=== PATIENT | male | born 1945 | race Caucasian/White ===

== ENCOUNTER → 2016-06-15 | Outpatient (CLI) | payer OTHER, MEDICARE ==
[~2016-06-15] MED LIST: GADOBUTROL 10 ML VIAL IVP ONE
== END ==
LOC: FIMAGING 18:37
PROVIDERS: ATTEND Psychiatry & Neurology Neurology
DX: E23.7 Disorder of pituitary gland, unspecified (principal); M50.321 Other cervical disc degeneration at C4-C5 level; M47.892 Other spondylosis, cervical region; M48.02 Spinal stenosis, cervical region
CPT/HCPCS: 70553; 72141; A9585

== ENCOUNTER → 2016-07-06 | Outpatient (CLI) | payer OTHER, MEDICARE | LOC: FIMAGING 09:53 | PROVIDERS: ATTEND Physician Assistant Surgical | DX: M51.36 Other intervertebral disc degeneration, lumbar region (principal); M51.26 Other intervertebral disc displacement, lumbar region; Z98.1 Arthrodesis status ==

== ENCOUNTER 2016-08-18 06:31 | Day surgery (SDC) | payer OTHER, MEDICARE ==
[2016-08-18] MEDS ORDERED: FAMOTIDINE 20 MG TAB PO ONE (06:37)
[2016-08-18] MEDS ORDERED: DIAZEPAM 5 MG TAB PO ONE (06:37)
[2016-08-18] MEDS ORDERED: ASPIRIN EC 325 MG TAB PO ONE ×2 (06:37→06:55)
[2016-08-18] MEDS ORDERED: NS 1,000 ML IV ONE (06:37)
[2016-08-18] MEDS ORDERED: diphenhydrAMINE 25 MG CAP PO ONE ×2 (06:37→06:55)
[2016-08-18] MEDS ORDERED: NS 1,000 ML IV SCH (06:45)
[2016-08-18] MEDS ORDERED: DIAZEPAM 5 MG TAB ONE (06:55)
[2016-08-18] MEDS ORDERED: FAMOTIDINE 20 MG TAB ONE (06:55)
[2016-08-18] MEDS ORDERED: SODIUM BICARBONATE 150 MEQ in D5W 1,000 ML IV SCH (07:00)
--- NOTE | 2016-08-18 07:10 | CPEKG ---
Heart Rate: 79 RR Interval: 759 QRSD Interval: 104 QT Interval: 404 QTC Interval: 464 QRS Baldwin: 82 T Wave Baldwin: 8 EKG Severity - ABNORMAL ECG - EKG Impression: ATRIAL FIBRILLATION, V-RATE 57-91 EKG Impression: BORDERLINE RIGHT AXIS DEVIATION EKG Impression: BORDERLINE R WAVE PROGRESSION, ANTERIOR LEADS Electronically Signed By: Alex Camacho 18-Aug-2016 08:02:07
[2016-08-18 07:21] LABS: % IMMATURE GRANULYOCYTES 0.8 % (0.0-1.1); ABSOLUTE IMMATURE GRANULOCYTES 0.06 10^3/uL (0.00-0.10); ADD DIFF? NO; ADD MORPH? NO; ADD SCAN? NO; ATYPICAL LYMPHOCYTE FLAG 20 (0-99); FRAGMENT RBC FLAG 0 (0-99); HEMATOCRIT 37.3 % (40.0-51.0); HEMOGLOBIN 12.4 g/dL (13.7-17.5); LEFT SHIFT FLG 0 (0-99); LIPEMIA HEMOLYSIS FLAG 80 (0-99); MEAN CELL HEMOGLOBIN 28.8 pg (27.9-34.1); MEAN CELL HEMOGLOBIN CONCENTR. 33.2 g/dL (32.4-36.7); MEAN CELL VOLUME 86.5 fL (81.5-99.8); PLATELET CLUMPS FLAG 0 (0-99); PLATELET COUNT 181 10^3/uL (150-400); RED BLOOD CELL COUNT 4.31 10^6/uL (4.40-6.38); RED CELL DISTRIBUTION WIDTH 14.7 % (11.5-15.2)
[2016-08-18 07:32] LABS: INR 1.14 (0.83-1.16); PROTIME(PATIENT) 14.5 SEC (12.0-15.0)
[2016-08-18 07:40] LABS: ANION GAP 14 mEq/L (8-16); CALCIUM 9.2 mg/dL (8.5-10.4); CARBON DIOXIDE 21 mEq/l (22-31); CHLORIDE 109 mEq/L (97-110); CHOLESTEROL 183 mg/dL (140-220); CHOLESTEROL/HDL RATIO 5.72 RATIO (1.00-4.97); CREATININE 1.5 mg/dL (0.7-1.3); GLOMERULAR FILTRATION RATE 46; GLUCOSE 172 mg/dL (70-100); HIGH DENSITY LIPOPROTEIN 32 mg/dL (40-65); LDL/HDL RATIO 3.69 RATIO (1.00-3.64); LOW DENSITY LIPOPROTEIN 118 mg/dL (80-100); MAGNESIUM 1.3 mg/dL (1.6-2.3); NON-HIGH DENSITY LIPOPROTEIN 151 mg/dL (90-129); POTASSIUM 4.2 mEq/L (3.5-5.2); SODIUM 144 mEq/L (134-144); TRIGLYCERIDE 165 mg/dL (40-150); VERY LOW DENSITY LIPOPROTEINS 33 mg/dL (8-25)
[2016-08-18] MEDS ORDERED: LIDOCAINE 1% 30 ML SDV ONE (09:14)
[2016-08-18] MEDS ORDERED: MIDAZOLAM 2 MG/2 ML VIAL ONE (09:15)
[2016-08-18] MEDS ORDERED: HEPARIN 10,000 UNIT/10 ML MDV ONE (09:15)
[2016-08-18] MEDS ORDERED: VERAPAMIL 5 MG/2 ML VIAL ONE (09:15)
[2016-08-18] MEDS ORDERED: fentaNYL 100 MCG/2 ML INJ ONE (09:15)
[2016-08-18] MEDS ORDERED: IOPAMIDOL (ISOVUE-370) 150 ML BTL IV ONE (09:16)
[2016-08-18] MEDS ORDERED: ONDANSETRON 4 MG/2 ML VIAL IVP PRN (12:18)
[2016-08-18] MEDS ORDERED: NITROGLYCERIN 0.4 MG BTL SL PRN (12:18)
[2016-08-18] MEDS ORDERED: ATROPINE SULFATE 1 MG/10 ML SYR IVP PRN (12:18)
--- NOTE | 2016-08-18 12:24 | PDDXCAT ---
Diagnostic Cath Note - . Date: 08/18/16 [employer] Clerk: Jose Indication: High-risk criteria on noninvasive testing (choose option below) High-risk criteria on non-invasive testing: large, fixed perfusion defect w LV dilatation or increased lung uptake - Procedure Access: left wrist Procedure: left heart catheterization, coronary angiography, other (Measurement of LVEDP) - Materials Left Heart Cath size: 5F Left Heart Cath materials: JL3.5, JR4.0, pigtail - Findings-Left Heart Catheterization LM: Unobstructed LAD: LAD stents widely patent. Principal diagonal 50% ostial disease LCX: Luminal irregularities not greater than 10%. RCA: Stents widely patent. Diffuse distal disease of 40-50% EDP: 15 mm of mercury Complications: None Estimated blood loss: <50ml Closure method: TR Band Assessment: 1. No contraindications to neuro surgical procedure identified by this study. 2. Widely patent site of prior stents including the LAD and right coronary artery. 3. Normal left ventricular end-diastolic pressure. 4. Renal insufficiency with creatinine 1.5. Dye limited to limited coronary angiography. IV normal saline post procedure. Plan: Repeat SMA 7 1 week. Referral back to [facility] for perioperative management. Patient Problems: Problems Problem Status Onset Drug-induced hypotension Active Hyperglycemia Active Afib - Atrial fibrillation Active Obstructive sleep apnea syndrome Active Leukocytosis Active Shoulder joint pain Active Anticoagulated Acute GI bleed Acute Acute renal failure Acute Weakness Acute Abnormal exercise myocardial perfusion study Acute Pre-operative cardiovascular examination, high risk surgery Acute Status post insertion of drug-eluting stent into left anterior descending (LAD) artery Acute Status post placement of stent in right coronary artery Acute - ICD10 Problem Qualifiers (1) Abnormal exercise myocardial perfusion study (2) Status post insertion of drug-eluting stent into left anterior descending ( LAD) artery (3) Status post placement of stent in right coronary artery (4) Pre-operative cardiovascular examination, high risk surgery
== END 2016-08-18 16:00 | disposition home or self-care (01) ==
LOC: FCATH 06:31
PROVIDERS: ATTEND Internal Medicine Interventional Cardiology
PROC: B2151ZZ Fluoroscopy of Left Heart using Low Osmolar Contrast (ICD-10-PCS; principal; 2016-08-18)
PROC: 4A023N7 Measurement of Cardiac Sampling and Pressure, Left Heart, Percutaneous Approach (ICD-10-PCS; principal; 2016-08-18)
PROC: B2111ZZ Fluoroscopy of Multiple Coronary Arteries using Low Osmolar Contrast (ICD-10-PCS; principal; 2016-08-18)
DX: R06.02 Shortness of breath (principal); R94.39 Abnormal result of other cardiovascular function study; I25.10 Atherosclerotic heart disease of native coronary artery without angina pectoris; N28.9 Disorder of kidney and ureter, unspecified; Z95.5 Presence of coronary angioplasty implant and graft
CPT/HCPCS: 93005; 93458; C1769; J1200; J1644; J2250; J3010; Q9967

== ENCOUNTER 2016-08-25 05:32 | Inpatient (IN) | payer OTHER, MEDICARE ==
[2016-08-25] MEDS ORDERED: LIDOCAINE 1% 2 ML INJ ONE (05:52)
[2016-08-25] MEDS ORDERED: DEXAMETHASONE 10 MG/ML VIAL IVP ONE (06:00)
[2016-08-25] MEDS ORDERED: CHLORHEXIDINE GLUC HIBICLENS 118 ML BTL TP ONE (06:00)
[2016-08-25] MEDS ORDERED: BUPIVACAINE/EPI 0.5% 30 ML SDV ONE ×2 (06:44→06:48)
[2016-08-25] MEDS ORDERED: BACITRACIN 50,000 UNITS/10 ML SYR IRR ONE (06:44)
[2016-08-25] MEDS ORDERED: THROMBIN (BOVINE) 5,000 UNIT VIAL TP ONE ×3 (06:44→09:38)
[2016-08-25] MEDS ORDERED: BUPIVACAINE 0.25% 30 ML SDV ONE (06:49)
[2016-08-25] MEDS ORDERED: CEFAZOLIN 2 GM/DEXTROSE/100 ML BAG IV ONE (06:57)
[2016-08-25] MEDS ORDERED: ceFAZolin 2 GM/DEXTROSE 100 ML IV ONE (07:00)
[2016-08-25] MEDS ORDERED: CITRATE DEXTROSE SOLN 500 ML BAG ONE (07:03)
[2016-08-25] MEDS ORDERED: MIDAZOLAM 2 MG/2 ML VIAL ONE (07:10)
[2016-08-25] MEDS ORDERED: PROPOFOL/EMULSION 500 MG/50 ML BOTTLE IV ONE ×6 (07:14→12:33)
[2016-08-25] MEDS ORDERED: LIDOCAINE 2% 100 MG/5 ML SYR ONE (07:15)
[2016-08-25] MEDS ORDERED: ROCURONIUM 50 MG/5 ML VIAL ONE (07:15)
[2016-08-25] MEDS ORDERED: METOCLOPRAMIDE 10 MG/2 ML VIAL ONE (07:15)
[2016-08-25] MEDS ORDERED: SUCCINYLCHOLINE CHLORIDE*ANESTHESIA ONLY*200 MG/10 ML SYR IVP ONE (07:15)
[2016-08-25] MEDS ORDERED: BUPIVACAINE/EPI 0.25% 30 ML SDV ONE ×2 (07:37→11:54)
[2016-08-25] MEDS ORDERED: SURGIFLO MATRIX KIT WITH THROMBIN TP ONE (10:02)
[2016-08-25] MEDS ORDERED: ceFAZolin 1 GM VIAL ONE (10:33)
[2016-08-25] MEDS ORDERED: SUGAMMADEX SODIUM 200 MG/2 ML VIAL IVP ONE (11:36)
[2016-08-25] MEDS ORDERED: morphINE *ANESTHESIA ONLY* 10 MG/ML VIAL ONE (13:52)
[2016-08-25] MEDS ORDERED: DIAZEPAM 10 MG/2 ML SYR IVP PRN (14:27)
[2016-08-25] MEDS ORDERED: LACTULOSE 20 GM/30 ML UDCUP PO PRN (14:27)
[2016-08-25] MEDS ORDERED: ACETAMINOPHEN 325 MG TAB PO PRN (14:27)
[2016-08-25] MEDS ORDERED: oxyCODONE IR 5 MG TAB PO PRN (14:27)
[2016-08-25] MEDS ORDERED: DIAZEPAM 5 MG TAB PO PRN (14:27)
[2016-08-25] MEDS ORDERED: NALOXONE HCL 0.4 MG/ML INJ IVP PRN (14:27)
[2016-08-25] MEDS ORDERED: HYDROmorphONE/DILAUDID 6 MG/30 ML PCA IV PRN (14:27)
[2016-08-25] MEDS ORDERED: diphenhydrAMINE 25 MG CAP PO PRN (14:27)
[2016-08-25] MEDS ORDERED: BISACODYL 10 MG SUPP PR PRN (14:27)
[2016-08-25] MEDS ORDERED: ONDANSETRON 4 MG/2 ML VIAL IVP PRN (14:27)
[2016-08-25] MEDS ORDERED: MAGNESIUM HYDROXIDE 30 ML UDCUP PO PRN (14:27)
[2016-08-25] MEDS ORDERED: ONDANSETRON DISINTEGRATING 4 MG TAB PO PRN (14:27)
[2016-08-25] MEDS ORDERED: NS W/ 20 KCl/L 1,000 ML IV SCH (14:30)
--- NOTE | 2016-08-25 14:32 | SOAPPROG ---
VIC Progress Note Assessment/Plan: Assessment: 71 yo M sp C3-7 ACDF and C3-T1 fusion with C3-6 laminectomy Plan: stable soft collar SHEBA x 2 please call with neuro changes 08/25/16 14:31 Subjective: + neck pain, no arm pain. Objective: somnolent PERRL, no facial droop [place] x 4 + light touch ICD10 Worksheet Patient Problems: Problems Problem Status Onset Afib - Atrial fibrillation Active Drug-induced hypotension Active Hyperglycemia Active Leukocytosis Active Obstructive sleep apnea syndrome Active Shoulder joint pain Active Abnormal exercise myocardial perfusion study Acute Acute renal failure Acute Anticoagulated Acute GI bleed Acute Pre-operative cardiovascular examination, high risk surgery Acute Status post insertion of drug-eluting stent into left anterior descending (LAD) artery Acute Status post placement of stent in right coronary artery Acute Weakness Acute
[2016-08-25] MEDS ORDERED: DIAZEPAM 10 MG/2 ML SYR ONE (15:13)
--- NOTE | 2016-08-25 15:20 | GOP ---
[f rep st] OPERATIVE REPORT DATE OF OPERATION: 08/25/2016 SURGEON: Rafat Beauchamp MD PARAMEDICAL AIDE: PAYTON Junior ANESTHESIA: General endotracheal. 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 Progressive myelopathic symptoms. Loss of normal cervical lordosis/sagittal alignment. High-risk surgical candidate given age, comorbidities, and required surgical intervention. 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 Progressive myelopathic symptoms. Loss of normal cervical lordosis/sagittal alignment. High-risk surgical candidate given age, comorbidities, and required surgical intervention. PROCEDURE PERFORMED: C3-4, C4-5, C5-6, and C6-7 complete anterior cervical diskectomy and arthrodesis with 4 structural PEEK interbody spacers, local autograft and demineralized bone matrix. Partial C4, C5 and C6 vertebral corpectomies for decompression of spinal cord. Placement of a C3 through C7 CastleLoc P, L and K anterior cervical plate with self-drilling screws. Use of intraoperative microscopy and fluoroscopy. FINDINGS: ESTIMATED BLOOD LOSS: 250 cc. INDICATIONS: The patient is a 71-year-old diabetic who is obese and has progressive myelopathic symptoms with multilevel cervical degenerative disk disease and disk herniations with significant ligamentum flavum hypertrophy causing severe cervical stenosis and spinal cord compression. He also has a significant loss of the normal lordotic curvature (sagittal alignment). He presents now for a multilevel surgical decompression and stabilization and reconstruction of the normal lordotic curvature of the cervical spine. DESCRIPTION OF PROCEDURE: After informed consent was obtained, the patient was taken to the operating room and placed in the supine position. The anterior cervical region was prepped and draped in a sterile fashion. After fluoroscopic localization of correct levels, the subcutaneous and intramuscular tissues were infiltrated with local anesthesia. A horizontal linear incision was then created at the level of the C5 vertebral body. This was carried through the platysmal layers using monopolar electrocautery and carried in the avascular plane between the sternocleidomastoid and carotid sheath laterally and the strap muscles, trachea , and esophagus medially down to the prevertebral fascia, which was carefully incised with Metzenbaum scissors. The C3-4, C4-5, C5-6, and C6-7 interspaces were identified and re-verified using intraoperative fluoroscopy. The retractor was carefully inserted and the anesthesiologist checked the cuff pressure manometer and lowered the pressure below 10 throughout the surgery. The large osteophytes on the anterior cervical spine were carefully removed and harvested for local autograft. The distraction pins were then serially inserted , first at C3-4, then at C4-5, then at C5-6, then at C6-7, during which time a slight amount of distraction was created across the interspaces and complete diskectomies were performed at each level, one with removal of the posterior longitudinal ligament and bilateral foraminotomies were performed at each of the 4 levels. There were significant irregularities in the vertebral body and posteriorly protruding osteophytes, both of which required an extensive amount of drilling of the endplates and vertebral bodies. This was especially the case for the middle vertebral body levels where both the superior and inferior endplates were drilled out along with the osteophytes and more than 50% of the vertebral bodies were drilled out at C4, C5, and C6 for partial C4, C5, and C6 vertebral corpectomies in order to adequately decompress the spinal cord. Following adequate decompression, meticulous hemostasis was achieved at each of the levels and each interspace was packed with appropriately sized structural PEEK interbody spacer packed with local autograft from the osteophytectomies and drilling, along with demineralized bone matrix. These were placed at C3-4, C4-5, C5-6, and C6-7 under fluoroscopic image guidance. The distraction was serially removed and, following the last interspace, an appropriately-sized CastleLoc P, L and K anterior cervical plate was then placed and secured from C3 through C7 with self-drilling screws. After re-verification of good position of the plate screws and interbody spacers using biplanar and fluoroscopy, the wound was again copiously irrigated and meticulous hemostasis was achieved. Note that so much of the vertebral bodies were drilled away in the middle that several of the levels did not have enough vertebral body left to place screws and these were left out. Following verification of good position of the plate, screws, and interbody spacers, the subcutaneous and soft tissues were re-infiltrated with local anesthesia. The wound was closed in a layered fashion using interrupted Vicryl sutures followed by Steri-Strips on the skin. COMPLICATIONS: None. DISPOSITION: The patient is currently in the process of being repositioned for extubation. /[id number]/MODL MTDD
[2016-08-25] MEDS ORDERED: INSULIN REGULAR HUMAN 100 UNIT/ML ONE ×3 (15:37→15:43)
[2016-08-25 15:52] LABS: GLUCOSE 422 mg/dL (70-100)
[2016-08-25] MEDS ORDERED: INSULIN REGULAR HUMAN 100 UNIT/ML SC ONE ×2 (16:00→16:15)
[2016-08-25] MEDS ORDERED: LABETALOL HCL 50 MG/10 ML SYR ONE (16:04)
[2016-08-25] MEDS ORDERED: LABETALOL HCL 5 MG/ML 20 ML MDV IV ONE (16:15)
--- NOTE | 2016-08-25 16:15 | GOP ---
[f rep st] OPERATIVE REPORT DATE OF OPERATION: 08/25/2016 SURGEON: Rafat Beauchamp MD ASSEMBLY DEPARTMENT SUPERVISOR: PAYTON Junior. ANESTHESIA: General endotracheal. 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 Progressive myelopathic symptoms. Loss of normal cervical lordosis/sagittal alignment. High-risk surgical candidate given age, comorbidities, and required surgical intervention. 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 Progressive myelopathic symptoms. Loss of normal cervical lordosis/sagittal alignment. High-risk surgical candidate given age, comorbidities, and required surgical intervention. PROCEDURE PERFORMED: C3 through T1 posterior segmental (lateral mass screw and pedicle screw) fixation and posterolateral fusion with local autograft. C3 through C7 laminectomies for decompression of spinal canal and spinal cord. Use of intraoperative microscopy, fluoroscopy, and computer volumetric stereotactic navigation with intraoperative neurophysiologic testing. FINDINGS: ESTIMATED BLOOD LOSS: 250 cc. INDICATIONS FOR PROCEDURE: The patient is a 71-year-old diabetic who is obese and has progressive myelopathic symptoms with multilevel cervical degenerative disk disease and disk herniations with significant ligamentum flavum hypertrophy causing severe cervical stenosis and spinal cord compression. He also has a significant loss of the normal lordotic curvature (sagittal alignment ). He presents now for a multilevel surgical decompression and stabilization and reconstruction of the normal lordotic curvature of the cervical spine. DESCRIPTION OF PROCEDURE: After the anterior portion of the procedure was completed, the patient was repositioned prone with the head in the Ch filter tank tender helper head. The posterior cervical region was prepped and draped in a sterile fashion, and after fluoroscopic localization of the correct level, the subcutaneous and intramuscular tissues were infiltrated with local anesthesia. A midline linear incision was then created from approximately C3 through T1. This was carried down to the fascial layer, which was then incised using monopolar electrocautery and carried in a subperiosteal plane along the spinous processes and out the lamina bilaterally. Intraoperative fluoroscopy was again utilized to verify the correct levels. Following this, the dissection was carried out over the facet joints, and the O-arm neuronavigational system brought in. 3D reconstructed images were obtained and sent, and using computer volumetric stereotactic navigation, lateral mass screw fixation was placed at C3 , C4, C5, C6, and C7 bilaterally. Pedicle screws were placed at C1 bilaterally. Each individual screw was tested neurophysiologically with monopolar electrostimulation and interpretation of the potentials by the surgeon. The only screw that stimulated slightly low was T1 on the left. The O-arm neuronavigational system was utilized to 3D reconstruct images and it was determined that the screw was a little high. This was removed and replaced with a more inferior angle and subsequently stimulated high. The O-arm neuronavigational system was also utilized to verify good position of all of these screws with a 3D reconstructed image. Following this, the rods were placed and secured under maximal lordosis and the facet joints from C3 through T1 were extensively drilled out along with the remaining lamina and lateral masses. The local autograft from the laminectomy defects were then placed out laterally for posterolateral fusion from C3 through T1. After copious irrigation and meticulous hemostasis, the wound was then closed in a layered fashion using interrupted Vicryl sutures followed by Steri-Strips on the skin. Note that the subcutaneous intramuscular tissues were re- infiltrated with local anesthesia prior to closure. DISPOSITION: The patient was extubated and is currently being transferred to the recovery room. COMPLICATIONS: None. /[id number]/MODL MTDD
[2016-08-25] MEDS ORDERED: NON-FORMULARY NEW DRUG (Insulin Lispro [Humalog] 0 UNIT) SQ SCH (17:00)
[2016-08-25] MEDS: HYDROmorphONE/DILAUDID 1 MG/ML SYR IVP PRN ×4 (17:36→21:45)
[2016-08-25] MEDS: POLYETHYLENE GLYCOL 3350 17 GM PKT PO SCH ×2 (17:45→21:50)
[2016-08-25] MEDS ORDERED: LABETALOL HCL 5 MG/ML 20 ML MDV IVP PRN (19:01)
[2016-08-25] MEDS: SENNOSIDES/DOCUSATE SODIUM TAB PO SCH (20:39)
[2016-08-25] MEDS: morphINE SR 15 MG TAB PO SCH (20:39)
[2016-08-25] MEDS: FAMOTIDINE 20 MG/NACL 50 ML IV SCH (20:43)
[2016-08-25] MEDS ORDERED: hydrALAZINE 20 MG/ML VIAL IVP ONE (20:45)
[2016-08-25] MEDS: INSULIN GLARGINE 100 UNITS/ML SYRINGE SC SCH (21:48)
[2016-08-25] MEDS: LABETALOL HCL 200 MG TAB PO SCH (22:57)
[2016-08-25] MEDS: HYDROCODONE/APAP 10/325 TAB PO PRN (22:57)
--- NOTE | 2016-08-25 23:36 | HOSPPROG ---
Hospitalist Progress Note Assessment/Plan: CONSULTATION HISTORY AND PHYSICAL NOTE CC: I AM ASKED BY DR. STATON TO EVALUATE AND ASSIST IN THE CARE OF MR. PERKINS WHO HAS HAD CERVICAL SPINE SURGERY AND HAS MULTIPLE CHRONIC MEDICAL PROBLEMS HISTORY: This patient is a 71-year-old man who had cervical spine surgery earlier today, which was uncomplicated and successful. I am seeing him now in the intensive care unit where he had been monitored in the postoperative setting. He has neck pain but no new neurologic symptoms. He does not have any chest pain shortness of breath, angina, abdominal pain nausea fever symptoms or other new symptoms. He had some difficulty pain earlier this evening but currently feels his pain is reasonably controlled. He is thirsty. ROS: A comprehensive 10 system review revealed no other acute significant findings PAST MEDICAL HISTORY: Atrial fibrillation Coronary artery disease with 2 stents Chronic anticoagulation in the outpatient setting Chronic low back pain Diabetes mellitus on insulin Chronic kidney disease Hypertension Gout Dyslipidemia Velez's palsy Wrist and shoulder surgeries FAMILY MEDICAL HISTORY: heart disease SOCIAL HISTORY: and lives with his Does not use tobacco or alcohol PHYSICAL EXAMINATION: Vital Signs: had hypertension earlier when he was having more pain but the pain relief he has now leaves him with normal blood pressure, otherwise stable without fever Logistics 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: sinus rhythm on my review Examination: General: somnolent but arouses easily for conversation, oriented, good mentation, relaxed Skin: warm, dry, good color, no rash HEENT: normal Neck: in soft cervical collar Resps: relaxed Lungs: clear breath sounds Heart: regular, no murmur Abdomen: soft, nondistended, nontender, +BS, no mass No Bleeding or bruising Neurologic: normal speech/language, 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, no focal weakness IV site: looks normal LABORATORY DATA: sugars high so far ASSESSMENT: - status post cervical spine surgery -Insulin-dependent diabetes currently with hyperglycemia initially tested postoperative -History of coronary disease and atrial fibrillation, currently in a sinus rhythm without any signs of angina or heart failure -Chronic hypertension currently well controlled -Chronic kidney disease PLANS: - monitor blood pressure, blood sugars, and renal function closely here -Watch closely for any signs of heart failure -Mechanical DVT prophylaxis at this time, resumption of anticoagulation when it is safe from a surgical standpoint I have reviewed the patient's past medical records as part of this assessment, including previous hospital admission records Objective: Vital Signs Temp Pulse Resp BP Pulse Ox 36.8 C 86 12 131/58 H 97 08/25/16 15:23 08/25/16 23:00 08/25/16 23:00 08/25/16 23:00 08/25/16 23:00 Laboratory Results 08/25/16 15:25 08/24/16 08/25/16 08/26/16 06:59 06:59 06:59 Intake Total 3750 Output Total 1965 Balance 1785 ICD10 Worksheet Patient Problems: Problems Problem Status Onset Afib - Atrial fibrillation Active Drug-induced hypotension Active Hyperglycemia Active Leukocytosis Active Obstructive sleep apnea syndrome Active Shoulder joint pain Active Abnormal exercise myocardial perfusion study Acute Acute renal failure Acute Anticoagulated Acute GI bleed Acute Pre-operative cardiovascular examination, high risk surgery Acute Status post insertion of drug-eluting stent into left anterior descending (LAD) artery Acute Status post placement of stent in right coronary artery Acute Weakness Acute
[2016-08-26] MEDS: OXYCODONE/APAP 5/325 TAB PO PRN ×3 (01:50→11:49)
[2016-08-26] MEDS: HYDROmorphONE/DILAUDID 1 MG/ML SYR IVP PRN ×2 (01:51→05:29)
[2016-08-26] MEDS: METHOCARBAMOL 750 MG TAB PO PRN ×2 (01:51→22:18)
[2016-08-26] MEDS: HYDROCODONE/APAP 10/325 TAB PO PRN (05:11)
[2016-08-26 05:50] LABS: % IMMATURE GRANULYOCYTES 0.7 % (0.0-1.1); ABSOLUTE IMMATURE GRANULOCYTES 0.06 10^3/uL (0.00-0.10); ADD DIFF? NO; ADD MORPH? NO; ADD SCAN? NO; ATYPICAL LYMPHOCYTE FLAG 0 (0-99); FRAGMENT RBC FLAG 0 (0-99); HEMATOCRIT 30.4 % (40.0-51.0); LEFT SHIFT FLG 0 (0-99); LIPEMIA HEMOLYSIS FLAG 80 (0-99); MEAN CELL HEMOGLOBIN 28.3 pg (27.9-34.1); MEAN CELL HEMOGLOBIN CONCENTR. 32.9 g/dL (32.4-36.7); MEAN CELL VOLUME 86.1 fL (81.5-99.8); MEAN PLATELET VOLUME 10.7 fL (8.7-11.7); PLATELET CLUMPS FLAG 10 (0-99); PLATELET COUNT 140 10^3/uL (150-400); RED BLOOD CELL COUNT 3.53 10^6/uL (4.40-6.38); RED CELL DISTRIBUTION WIDTH 14.6 % (11.5-15.2)
[2016-08-26 06:35] LABS: ANION GAP 7 mEq/L (8-16); CARBON DIOXIDE 21 mEq/l (22-31); CHLORIDE 106 mEq/L (97-110); CREATININE 1.2 mg/dL (0.7-1.3); GLOMERULAR FILTRATION RATE 60; GLUCOSE 353 mg/dL (70-100); POTASSIUM 5.1 mEq/L (3.5-5.2); SODIUM 134 mEq/L (134-144)
[2016-08-26 06:37] LABS: CALCIUM 8.2 mg/dL (8.5-10.4)
[2016-08-26] MEDS: FUROSEMIDE 20 MG TAB PO SCH (08:57)
[2016-08-26] MEDS: POLYETHYLENE GLYCOL 3350 17 GM PKT PO SCH ×3 (08:57→22:47)
[2016-08-26] MEDS: ALLOPURINOL 300 MG TAB PO SCH (08:57)
[2016-08-26] MEDS: morphINE SR 15 MG TAB PO SCH ×2 (08:57→22:18)
[2016-08-26] MEDS: FAMOTIDINE 20 MG/NACL 50 ML IV SCH (08:57)
[2016-08-26] MEDS: PANTOPRAZOLE SODIUM 40 MG TAB PO SCH (08:57)
[2016-08-26] MEDS ORDERED: NON-FORMULARY NEW DRUG (Omeprazole [Prilosec 20 Mg] 40 MG) PO SCH (09:00)
[2016-08-26] MEDS: LABETALOL HCL 200 MG TAB PO SCH ×2 (09:01→22:17)
[2016-08-26] MEDS: SENNOSIDES/DOCUSATE SODIUM TAB PO SCH ×2 (09:01→22:17)
[2016-08-26] MEDS ORDERED: D50W 25 GM/50 ML SYR IVP PRN ×2 (09:30→10:30)
[2016-08-26] MEDS: INSULIN GLARGINE 100 UNITS/ML SYRINGE SC SCH ×2 (10:13→22:41)
[2016-08-26] MEDS ORDERED: INSULIN LISPRO 100 UNIT/ML SC SCH ×2 (11:00→12:00)
[2016-08-26] MEDS: INSULIN LISPRO 100 UNIT/ML SC SCH ×2 (12:11→18:39)
--- NOTE | 2016-08-26 14:15 | SOAPPROG ---
SOAP Progress Note Assessment/Plan: Assessment: POD #1 sp C3-7 ACDF and C3-T 1 posterior fusion Doing well at this time Pain controlled denies new neuro changes. Plan: Continue both SHEBA drains PT/OT/ST Dysphagia diet ok for floor Discussed with Dr. Marcelino 08/26/16 14:12 Subjective: awake, alert. Pain controlled. denies numbness or weakness. Wearing soft collar. Objective: Vital Signs Temp Pulse Resp BP Pulse Ox 36.9 C 85 14 156/74 H 90 L 08/26/16 12:00 08/26/16 13:28 08/26/16 13:28 08/26/16 13:28 08/26/16 13:28 Laboratory Results 08/26/16 05:41 08/26/16 05:41 08/25/16 08/26/16 08/27/16 05:59 05:59 05:59 Intake Total 4700 Output Total 3255 Balance 1445 Post op cervical xrays show stable hardware Neuro: GUTIÉRREZ, Sens +LT speech clear Ant incision: CDI. SHEBA: 95ml Post SHEBA 145ml ICD10 Worksheet Patient Problems: Problems Problem Status Onset Afib - Atrial fibrillation Active Drug-induced hypotension Active Hyperglycemia Active Leukocytosis Active Obstructive sleep apnea syndrome Active Shoulder joint pain Active Abnormal exercise myocardial perfusion study Acute Acute renal failure Acute Anticoagulated Acute GI bleed Acute Pre-operative cardiovascular examination, high risk surgery Acute Status post insertion of drug-eluting stent into left anterior descending (LAD) artery Acute Status post placement of stent in right coronary artery Acute Weakness Acute
--- NOTE | 2016-08-26 14:41 | HOSPPROG ---
Hospitalist Progress Note Assessment/Plan: #C3-7 ACDF, C3-T1 posterior fusion: POD #1. PT/OT #Uncontrolled DM: received IV steroids. will change to high-dose SSI with meals and uptitrate glargine as needed #Acute neck pain: currently oversedated. Stop PLATE MILL MILL HAND, schedule APAP, PRN oxycodone #Diet: diabetic #DVT ppx: SCDs Subjective: pain in neck, 12/25. sharp Objective: Vital Signs Temp Pulse Resp BP Pulse Ox 36.9 C 85 14 156/74 H 90 L 08/26/16 12:00 08/26/16 13:28 08/26/16 13:28 08/26/16 13:28 08/26/16 13:28 Laboratory Results 08/26/16 05:41 08/26/16 05:41 08/25/16 08/26/16 08/27/16 05:59 05:59 05:59 Intake Total 4700 Output Total 3255 Balance 1445 - Physical Exam Constitutional: no apparent distress Eyes: PERRL Ears, Nose, Mouth, Throat: moist mucous membranes Cardiovascular: regular rate and rhythym, no murmur, rub, or gallop Respiratory: no respiratory distress Gastrointestinal: normoactive bowel sounds, soft, non-tender abdomen Genitourinary: no bladder fullness Skin: warm Musculoskeletal: other (soft c-collar in place) Neurologic: AAOx3, CN II-XII Intact, other (tangential, slurred words. No focal deficits) Psychiatric: interacting appropriately ICD10 Worksheet Patient Problems: Problems Problem Status Onset Afib - Atrial fibrillation Active Drug-induced hypotension Active Hyperglycemia Active Leukocytosis Active Obstructive sleep apnea syndrome Active Shoulder joint pain Active Abnormal exercise myocardial perfusion study Acute Acute renal failure Acute Anticoagulated Acute GI bleed Acute Pre-operative cardiovascular examination, high risk surgery Acute Status post insertion of drug-eluting stent into left anterior descending (LAD) artery Acute Status post placement of stent in right coronary artery Acute Weakness Acute
[2016-08-26] MEDS: oxyCODONE IR 5 MG TAB PO PRN (15:57)
[2016-08-26] MEDS: ACETAMINOPHEN 500 MG TAB PO SCH ×2 (15:58→22:17)
[2016-08-26] MEDS: LISINOPRIL 2.5 MG TAB PO SCH (16:06)
[2016-08-27] MEDS: INSULIN LISPRO 100 UNIT/1 ML VIAL STANDARD SC SCH ×2 (00:42→21:13)
[2016-08-27] MEDS: oxyCODONE IR 5 MG TAB PO PRN ×5 (02:59→22:45)
[2016-08-27 05:55] LABS: ANION GAP 6 mEq/L (8-16); CALCIUM 8.2 mg/dL (8.5-10.4); CARBON DIOXIDE 25 mEq/l (22-31); CHLORIDE 106 mEq/L (97-110); CREATININE 1.2 mg/dL (0.7-1.3); GLOMERULAR FILTRATION RATE 60; GLUCOSE 149 mg/dL (70-100); SODIUM 137 mEq/L (134-144)
[2016-08-27] MEDS: METHOCARBAMOL 750 MG TAB PO PRN ×3 (07:41→21:11)
[2016-08-27] MEDS: LISINOPRIL 2.5 MG TAB PO SCH (07:42)
[2016-08-27] MEDS: LABETALOL HCL 200 MG TAB PO SCH ×2 (07:43→21:10)
[2016-08-27] MEDS: ACETAMINOPHEN 500 MG TAB PO SCH ×3 (07:45→21:10)
[2016-08-27] MEDS: PANTOPRAZOLE SODIUM 40 MG TAB PO SCH (07:46)
[2016-08-27] MEDS: SENNOSIDES/DOCUSATE SODIUM TAB PO SCH ×2 (07:46→21:11)
[2016-08-27] MEDS: ALLOPURINOL 300 MG TAB PO SCH (07:48)
[2016-08-27] MEDS: POLYETHYLENE GLYCOL 3350 17 GM PKT PO SCH ×3 (07:48→21:11)
[2016-08-27] MEDS: FUROSEMIDE 20 MG TAB PO SCH (07:48)
[2016-08-27] MEDS: morphINE SR 15 MG TAB PO SCH (07:55)
--- NOTE | 2016-08-27 09:10 | NEUSURGPN ---
Date of Surgery: 08/25/16 Post Op Day: 2 Assessment/Plan: Assessment: POD #2 sp C3-7 ACDF and C3-T1 posterior fusion Plan: -doing well at this time but has some continued pain control issues -Pain-will work on pain control issues today -denies new neuro changes -continue both SHEBA drains-will check with Dr Marcelino of when to pull drains -PT/OT/ST -dysphagia diet -continue with floor status -post op xrays look good -discussed with Dr. Marcelino Subjective: Awake and alert. NAD. Eating/drinking and voiding. No f/c/n/v/d. No ogden/cp/ sob/abd or gu complaints. Objective: AAO x 3, PERRLA/EOMI no droop CN 2-12 grossly intact +lt touch 5/5 BUE/BLE = CDI x 2 neck soft and supple speech clear Neuro Check Frequency: per routine Urinary Catheter in Place: No Catheter Insertion Date: 08/25/16 - Physician Discussed Patient with : [facility] Physical Exam - Vitals, I&O, Labs I and O 08/26/16 08/27/16 08/28/16 05:59 05:59 05:59 Intake Total 4700 Output Total 3255 250 65 Balance 1445 -250 -65 Intake: Oral (ml) 250 IV Intake (ml) 3500 IV Infused (ml) 700 NS W/ 20 KCl/L 1,000 ml @ 700 75 mls/hr IV CONT JESUS Rx #:[id number] Autologous Blood (ml) 250 Output: Urine (ml) 2365 Catheter 2365 Estimated Blood Loss (ml) 650 Wound Drainage (ml) 240 250 65 #1 Left Anterior Neck 95 90 20 #2 Right Posterior Neck 145 160 45 Other: Intake Quantity Yes Sufficient Number of Voids Toilet 1 1 Vital Signs Temp Pulse Resp BP Pulse Ox 36.4 C 86 14 138/71 H 92 08/27/16 07:17 08/27/16 07:17 08/27/16 07:17 08/27/16 07:17 08/27/16 07:17 Laboratory Results 08/26/16 05:41 08/27/16 04:48 ICD10 Worksheet Patient Problems: Problems Problem Status Onset Afib - Atrial fibrillation Active Drug-induced hypotension Active Hyperglycemia Active Leukocytosis Active Obstructive sleep apnea syndrome Active Shoulder joint pain Active Abnormal exercise myocardial perfusion study Acute Acute renal failure Acute Anticoagulated Acute GI bleed Acute Pre-operative cardiovascular examination, high risk surgery Acute Status post insertion of drug-eluting stent into left anterior descending (LAD) artery Acute Status post placement of stent in right coronary artery Acute Weakness Acute
[2016-08-27] MEDS: INSULIN LISPRO 100 UNIT/ML SC SCH ×3 (10:16→19:01)
[2016-08-27] MEDS: INSULIN GLARGINE 100 UNITS/ML SYRINGE SC SCH ×2 (10:17→21:13)
--- NOTE | 2016-08-27 14:58 | HOSPPROG ---
Hospitalist Progress Note Assessment/Plan: #C3-7 ACDF, C3-T1 posterior fusion: POD #2. PT/OT #Mild toxic encephalopathy: suspect due to opioids. Stop MS MS Contin. Cont APAP , Roboxin #Uncontrolled DM: improving now off steroids. Change to standard SSI to avoid hypoglycemia. #Diet: diabetic #DVT ppx: SCDs Please call if questions Subjective: pain in neck like knife, 9/10. Very impulsive. Moved to room closer to RN station Objective: Vital Signs Temp Pulse Resp BP Pulse Ox 36.9 C 80 12 96/60 L 94 08/27/16 11:40 08/27/16 11:40 08/27/16 11:40 08/27/16 11:40 08/27/16 11:40 Laboratory Results 08/26/16 05:41 08/27/16 04:48 08/26/16 08/27/16 08/28/16 05:59 05:59 05:59 Intake Total 4700 Output Total 3255 250 65 Balance 1445 -250 -65 - Physical Exam Constitutional: no apparent distress Eyes: PERRL Ears, Nose, Mouth, Throat: moist mucous membranes, hearing normal Cardiovascular: regular rate and rhythym Respiratory: no respiratory distress, no rales or rhonchi Gastrointestinal: normoactive bowel sounds, soft, non-tender abdomen Genitourinary: no bladder fullness Skin: warm Musculoskeletal: full muscle strength, other (soft c-collar in place) Neurologic: AAOx3, CN II-XII Intact Psychiatric: encephalopathic, poor judgement (slow to answer questions. Tangential) ICD10 Worksheet Patient Problems: Problems Problem Status Onset Afib - Atrial fibrillation Active Drug-induced hypotension Active Hyperglycemia Active Leukocytosis Active Obstructive sleep apnea syndrome Active Shoulder joint pain Active Abnormal exercise myocardial perfusion study Acute Acute renal failure Acute Anticoagulated Acute GI bleed Acute Pre-operative cardiovascular examination, high risk surgery Acute Status post insertion of drug-eluting stent into left anterior descending (LAD) artery Acute Status post placement of stent in right coronary artery Acute Weakness Acute
[2016-08-28] MEDS: oxyCODONE IR 5 MG TAB PO PRN ×4 (04:42→21:01)
[2016-08-28] MEDS: METHOCARBAMOL 750 MG TAB PO PRN ×4 (04:42→21:20)
[2016-08-28 05:32] LABS: ANION GAP 6 mEq/L (8-16); CALCIUM 8.4 mg/dL (8.5-10.4); CARBON DIOXIDE 26 mEq/l (22-31); CHLORIDE 103 mEq/L (97-110); CREATININE 1.3 mg/dL (0.7-1.3); GLOMERULAR FILTRATION RATE 54; GLUCOSE 159 mg/dL (70-100); POTASSIUM 4.5 mEq/L (3.5-5.2); SODIUM 135 mEq/L (134-144)
[2016-08-28] MEDS ORDERED: HYDROmorphONE/DILAUDID 1 MG/ML SYR IVP ONE (06:01)
[2016-08-28] MEDS: ALLOPURINOL 300 MG TAB PO SCH (09:31)
[2016-08-28] MEDS: ACETAMINOPHEN 500 MG TAB PO SCH ×3 (09:31→21:02)
[2016-08-28] MEDS: ENOXAPARIN 40 MG/0.4 ML SYR SC SCH (09:32)
[2016-08-28] MEDS: LABETALOL HCL 200 MG TAB PO SCH ×2 (09:33→21:12)
[2016-08-28] MEDS: FUROSEMIDE 20 MG TAB PO SCH (09:33)
[2016-08-28] MEDS: LISINOPRIL 2.5 MG TAB PO SCH (09:34)
[2016-08-28] MEDS: PANTOPRAZOLE SODIUM 40 MG TAB PO SCH (09:34)
[2016-08-28] MEDS: POLYETHYLENE GLYCOL 3350 17 GM PKT PO SCH ×3 (09:34→21:49)
[2016-08-28] MEDS: SENNOSIDES/DOCUSATE SODIUM TAB PO SCH ×2 (09:34→21:06)
[2016-08-28] MEDS: INSULIN GLARGINE 100 UNITS/ML SYRINGE SC SCH ×2 (10:12→21:23)
[2016-08-28] MEDS: INSULIN LISPRO 100 UNIT/ML SC SCH ×3 (10:12→18:52)
--- NOTE | 2016-08-28 10:56 | NEUSURGPN ---
Assessment/Plan: Assessment: POD #3 sp C3-7 ACDF and C3-T1 posterior fusion Plan: -doing well at this time but has some continued pain control issues- somnolent this morning, MS contin held -Pain-working on it but patient gets somnolent with meds, holding and pushing muscle relaxants more -denies new neuro changes -continue posterior SHEBA drain. Anterior removed yesterday -PT/OT/ST -dysphagia diet -continue with floor status -post op xrays look good -Encourage IS -discussed with Dr. Marcelino Subjective: Is doing ok, still complaining of pain issues but concern for somnolence from RN due to meds. No fever, chills. Some increase in swallowing difficulties today. Objective: AAO x 3, PERRLA/EOMI CN 2-12 grossly intact +lt touch 5/5 BUE/BLE = CDI x 2 neck soft and supple speech clear Catheter Insertion Date: 08/25/16 - Physician Discussed Patient with DrThomas: Nito Neurosurgery Physical Exam - Vitals, I&O, Labs I and O 08/27/16 08/28/16 08/29/16 05:59 05:59 05:59 Output Total 250 125 Balance -250 -125 Output: Wound Drainage (ml) 250 125 #1 Left Anterior Neck 90 20 #2 Right Posterior Neck 160 105 Other: Intake Quantity Yes Sufficient Number of Voids Toilet 1 1 Vital Signs Temp Pulse Resp BP Pulse Ox 36.9 C 85 16 134/84 H 91 L 08/28/16 07:21 08/28/16 09:33 08/28/16 07:21 08/28/16 09:34 08/28/16 07:21 Laboratory Results 08/26/16 05:41 08/28/16 04:10 ICD10 Worksheet Patient Problems: Problems Problem Status Onset Afib - Atrial fibrillation Active Drug-induced hypotension Active Hyperglycemia Active Leukocytosis Active Obstructive sleep apnea syndrome Active Shoulder joint pain Active Abnormal exercise myocardial perfusion study Acute Acute renal failure Acute Anticoagulated Acute GI bleed Acute Pre-operative cardiovascular examination, high risk surgery Acute Status post insertion of drug-eluting stent into left anterior descending (LAD) artery Acute Status post placement of stent in right coronary artery Acute Weakness Acute
--- NOTE | 2016-08-28 11:49 | HOSPPROG ---
Hospitalist Progress Note Assessment/Plan: #C3-7 ACDF, C3-T1 posterior fusion: POD #3. PT/OT #Toxic encephalopathy: due to opioids. Dosed IV dilaudid overnight and very somnolent today. No IV pushes. Decrease oxycodone dose and frequency. MS Contin stopped 08/27 . Cont APAP, Roboxin. #Uncontrolled DM: increase glargine 30 units BID, SSI #CKD: BL 1.2-1.5. Cr stable today #Diet: diabetic #DVT ppx: SCDs Please call if questions Subjective: very somnolent Objective: Vital Signs Temp Pulse Resp BP Pulse Ox 36.6 C 76 14 83/53 L 96 08/28/16 11:31 08/28/16 11:31 08/28/16 11:31 08/28/16 11:31 08/28/16 11:31 Laboratory Results 08/26/16 05:41 08/28/16 04:10 08/27/16 08/28/16 08/29/16 05:59 05:59 05:59 Output Total 250 125 Balance -250 -125 - Physical Exam Constitutional: other (can't keep eyes open during interview) Eyes: PERRL (small pupils, reactive) Ears, Nose, Mouth, Throat: moist mucous membranes Cardiovascular: regular rate and rhythym, no murmur, rub, or gallop Respiratory: no respiratory distress, no rales or rhonchi Gastrointestinal: normoactive bowel sounds, soft, non-tender abdomen Genitourinary: no bladder fullness Skin: warm, normal color Musculoskeletal: full muscle strength, other (c-collar in place) Neurologic: CN II-XII Intact, other (significantly somnolent. Cannot keeps eyes open or participate in conversation) Psychiatric: encephalopathic ICD10 Worksheet Patient Problems: Problems Problem Status Onset Afib - Atrial fibrillation Active Drug-induced hypotension Active Hyperglycemia Active Leukocytosis Active Obstructive sleep apnea syndrome Active Shoulder joint pain Active Abnormal exercise myocardial perfusion study Acute Acute renal failure Acute Anticoagulated Acute GI bleed Acute Pre-operative cardiovascular examination, high risk surgery Acute Status post insertion of drug-eluting stent into left anterior descending (LAD) artery Acute Status post placement of stent in right coronary artery Acute Weakness Acute
[2016-08-28 12:45] LABS: HEMATOCRIT 26.6 % (40.0-51.0); HEMOGLOBIN 8.7 g/dL (13.7-17.5); MEAN CELL HEMOGLOBIN 28.5 pg (27.9-34.1); MEAN CELL HEMOGLOBIN CONCENTR. 32.7 g/dL (32.4-36.7); MEAN CELL VOLUME 87.2 fL (81.5-99.8); RED BLOOD CELL COUNT 3.05 10^6/uL (4.40-6.38); RED CELL DISTRIBUTION WIDTH 14.6 % (11.5-15.2)
[2016-08-28] MEDS ORDERED: oxyCODONE IR 5 MG TAB PO PRN (13:23)
--- NOTE | 2016-08-28 14:46 | WOCRNPDOC ---
WOCRN Advanced Assessment Note - Skin Integrity Problem, Advanced Assess Right Anterior Distal Leg Wound Dressing Type: Band Aid, Gauze Dressing Description: Not Intact Exudate Amount: Scant Exudate Color: Clear, Yellow Exudate Characteristic(s): Dried, Serous Integumentary Issue Intervention: Dressing Applied (Duoderm hydrocolloid, small) , Dressing Changed, Dressing Initialed & Dated Ariana Wound Tissue: Intact, Xerotic Ariana Wound Swelling: None Wound Bed Color: Red Wound Bed Constitution: Granulation Tissue Wound Edges: Epithelizing, Irregular, Scarred, Thick Site Odor: None Site Measurement - Head-to-Toe Length X Width X Depth (cm): 0.5 x 0.8 x 0.05 Skin Integrity Problem Comment: Patient reported to staffing program manager Jaelyn that he has had this small wound at the distal anterior RLE "for 20 years." Reported to this junior copywriter that he sees a middle school assistant principal at [facility] "occasionally " to monitor it. Currently it presents with the appearance of a chronic wound, based on the presence of thickened xerotic cheloid tissue (not the thin friable tissue more frequently seen in venous ulcers). With its clean, re- epithelializing appearance, a Duoderm dressing was placed to support the healing process. Patient dozed off during care, so verbal education/information was provided to his , present for care. Report to SOPHIE Christy.
[2016-08-28] MEDS: INSULIN LISPRO 100 UNIT/1 ML VIAL STANDARD SC SCH (21:39)
[2016-08-29] MEDS: DIAZEPAM 5 MG TAB PO PRN ×2 (01:52→21:49)
[2016-08-29] MEDS: oxyCODONE IR 5 MG TAB PO PRN ×3 (05:06→20:31)
[2016-08-29] MEDS: METHOCARBAMOL 750 MG TAB PO PRN ×2 (05:07→20:31)
[2016-08-29 05:13] LABS: ANION GAP 8 mEq/L (8-16); CALCIUM 9.1 mg/dL (8.5-10.4); CARBON DIOXIDE 25 mEq/l (22-31); CHLORIDE 105 mEq/L (97-110); CREATININE 1.2 mg/dL (0.7-1.3); GLOMERULAR FILTRATION RATE 60; GLUCOSE 96 mg/dL (70-100); POTASSIUM 4.3 mEq/L (3.5-5.2); SODIUM 138 mEq/L (134-144)
[2016-08-29] MEDS ORDERED: DIAZEPAM 5 MG TAB PO ONE (08:30)
--- NOTE | 2016-08-29 09:04 | NEUSURGPN ---
Assessment/Plan: Assessment: POD #4 sp C3-7 ACDF and C3-T1 posterior fusion Plan: -doing well at this time but has some continued pain control issues will slightly increase frequency muscle relaxers. Need tyo establish balance of sedation and pain control -denies new neuro changes -continue posterior SHEBA drain. -PT/OT/ST -dysphagia diet -post op xrays with intact hardware -Encourage IS -discussed with Dr. Marcelino Subjective: posterior neck pain. Tolerating PO Objective: AAO x 3, CN 2-12 grossly intact +lt touch 5/5 BUE/BLE = CDI x 2 neck soft and supple speech clear Catheter Insertion Date: 08/25/16 - Physician Patient Seen by Dr.: Nito Neurosurgery Physical Exam - Vitals, I&O, Labs I and O 08/28/16 08/29/16 08/30/16 05:59 05:59 05:59 Intake Total 1250 Output Total 125 650 Balance -125 600 Intake: Oral (ml) 1250 Output: Urine (ml) 600 Toilet 600 Wound Drainage (ml) 125 50 #1 Left Anterior Neck 20 #2 Right Posterior Neck 105 50 Other: Number of Voids Toilet 1 3 Number of Stools Toilet 2 Vital Signs Temp Pulse Resp BP Pulse Ox 37.1 C 96 18 176/82 H 93 08/29/16 07:34 08/29/16 07:34 08/29/16 07:34 08/29/16 07:34 08/29/16 07:34 Laboratory Results 08/28/16 12:40 08/29/16 04:15 ICD10 Worksheet Patient Problems: Problems Problem Status Onset Afib - Atrial fibrillation Active Drug-induced hypotension Active Hyperglycemia Active Leukocytosis Active Obstructive sleep apnea syndrome Active Shoulder joint pain Active Abnormal exercise myocardial perfusion study Acute Acute renal failure Acute Anticoagulated Acute GI bleed Acute Pre-operative cardiovascular examination, high risk surgery Acute Status post insertion of drug-eluting stent into left anterior descending (LAD) artery Acute Status post placement of stent in right coronary artery Acute Weakness Acute
[2016-08-29] MEDS: ENOXAPARIN 40 MG/0.4 ML SYR SC SCH (09:33)
[2016-08-29] MEDS: ALLOPURINOL 300 MG TAB PO SCH (09:34)
[2016-08-29] MEDS: LISINOPRIL 2.5 MG TAB PO SCH (09:34)
[2016-08-29] MEDS: LABETALOL HCL 200 MG TAB PO SCH ×2 (09:34→20:29)
[2016-08-29] MEDS: FUROSEMIDE 20 MG TAB PO SCH (09:34)
[2016-08-29] MEDS: PANTOPRAZOLE SODIUM 40 MG TAB PO SCH (09:35)
[2016-08-29] MEDS: ACETAMINOPHEN 500 MG TAB PO SCH ×3 (09:35→21:49)
[2016-08-29] MEDS: INSULIN GLARGINE 100 UNITS/ML SYRINGE SC SCH (10:08)
[2016-08-29] MEDS: INSULIN LISPRO 100 UNIT/ML SC SCH ×3 (10:14→18:25)
[2016-08-29] MEDS: SENNOSIDES/DOCUSATE SODIUM TAB PO SCH ×2 (10:14→20:28)
[2016-08-29] MEDS: POLYETHYLENE GLYCOL 3350 17 GM PKT PO SCH ×3 (10:14→22:19)
--- NOTE | 2016-08-29 15:04 | HOSPPROG ---
Hospitalist Progress Note Assessment/Plan: #C3-7 ACDF, C3-T1 posterior fusion: POD #3. PT/OT #Toxic encephalopathy: improved now off MS Contin. No IV pushes. Rec low-dose opioids and Valium. Cont APAP, Roboxin. #Uncontrolled DM: will decrease colleen dose glargine to 25units, 30unit AM, SSI #CKD: BL 1.2-1.5. Cr stable today #Deconditioning: SNF vs home care #Diet: diabetic #DVT ppx: SCDs Please call if questions Subjective: "feel better" walking with PT Objective: Vital Signs Temp Pulse Resp BP Pulse Ox 36.6 C 89 18 144/85 H 93 08/29/16 11:35 08/29/16 11:35 08/29/16 11:35 08/29/16 11:35 08/29/16 11:35 Laboratory Results 08/28/16 12:40 08/29/16 04:15 08/28/16 08/29/16 08/30/16 05:59 05:59 05:59 Intake Total 1250 Output Total 125 650 350 Balance -125 600 -350 - Physical Exam Constitutional: other (brigher. Less sedated today and able to answer my questions clearly) Ears, Nose, Mouth, Throat: moist mucous membranes Cardiovascular: regular rate and rhythym Respiratory: no respiratory distress Gastrointestinal: normoactive bowel sounds, soft, non-tender abdomen Genitourinary: no bladder fullness Skin: warm Musculoskeletal: other (SHEBA in place. Surgical incisions CDI) Neurologic: CN II-XII Intact, other (less somnolent today) Psychiatric: interacting appropriately ICD10 Worksheet Patient Problems: Problems Problem Status Onset Afib - Atrial fibrillation Active Drug-induced hypotension Active Hyperglycemia Active Leukocytosis Active Obstructive sleep apnea syndrome Active Shoulder joint pain Active Abnormal exercise myocardial perfusion study Acute Acute renal failure Acute Anticoagulated Acute GI bleed Acute Pre-operative cardiovascular examination, high risk surgery Acute Status post insertion of drug-eluting stent into left anterior descending (LAD) artery Acute Status post placement of stent in right coronary artery Acute Weakness Acute
[2016-08-29] MEDS: INSULIN LISPRO 100 UNIT/1 ML VIAL STANDARD SC SCH (18:09)
[2016-08-29] MEDS ORDERED: INSULIN GLARGINE 100 UNITS/ML SYRINGE SC SCH (21:00)
[2016-08-30] MEDS: oxyCODONE IR 5 MG TAB PO PRN ×2 (02:12→13:11)
[2016-08-30] MEDS: METHOCARBAMOL 750 MG TAB PO PRN ×3 (02:12→17:13)
[2016-08-30] MEDS: DIAZEPAM 5 MG TAB PO PRN ×2 (05:12→13:11)
--- NOTE | 2016-08-30 07:45 | NEUSURGPN ---
Date of Surgery: 08/25/16 Post Op Day: 5 Assessment/Plan: Assessment: POD #5 sp C3-7 ACDF and C3-T1 posterior fusion Plan: -pain controlled on Oxycodone/Robaxin -denies new neuro changes -SHEBA drain with 40 cc output in last 24 hours, possibly remove today -PT/OT/ST -dysphagia diet -post op xrays with intact hardware -Encourage IS -Dispo planning to SNF vs home with HHC, possibly later today if progresses well and cleared by medicine -discussed with Dr. Marcelino Subjective: Resting in bed. Has neck pain, tolerable. Objective: Awake. Alert. PERRL. EOMI Following commands muscle strength full at 5/5 Sensation intact Catheter Insertion Date: 08/25/16 - Physician Discussed Patient with DrThomas: Nito Neurosurgery Physical Exam - Vitals, I&O, Labs I and O 08/29/16 08/30/16 08/31/16 05:59 05:59 05:59 Intake Total 1250 2050 Output Total 650 890 Balance 600 1160 Intake: Oral (ml) 1250 2050 Output: Urine (ml) 600 850 Toilet 600 650 Urinal 200 Wound Drainage (ml) 50 40 #2 Right Posterior Neck 50 40 Other: Number of Voids Toilet 3 1 Urinal 1 Number of Stools Toilet 2 Vital Signs Temp Pulse Resp BP Pulse Ox 36.6 C 81 16 146/68 H 90 L 08/30/16 04:00 08/30/16 04:00 08/30/16 04:00 08/30/16 04:00 08/30/16 04:00 Laboratory Results 08/28/16 12:40 08/29/16 04:15 ICD10 Worksheet Patient Problems: Problems Problem Status Onset Afib - Atrial fibrillation Active Drug-induced hypotension Active Hyperglycemia Active Leukocytosis Active Obstructive sleep apnea syndrome Active Shoulder joint pain Active Abnormal exercise myocardial perfusion study Acute Acute renal failure Acute Anticoagulated Acute GI bleed Acute Pre-operative cardiovascular examination, high risk surgery Acute Status post insertion of drug-eluting stent into left anterior descending (LAD) artery Acute Status post placement of stent in right coronary artery Acute Weakness Acute
[2016-08-30] MEDS: ACETAMINOPHEN 500 MG TAB PO SCH ×2 (08:47→17:12)
[2016-08-30] MEDS: INSULIN LISPRO 100 UNIT/ML SC SCH ×2 (08:48→15:02)
[2016-08-30] MEDS: ALLOPURINOL 300 MG TAB PO SCH (08:50)
[2016-08-30] MEDS: ENOXAPARIN 40 MG/0.4 ML SYR SC SCH (08:51)
[2016-08-30] MEDS: FUROSEMIDE 20 MG TAB PO SCH (08:51)
[2016-08-30] MEDS: LABETALOL HCL 200 MG TAB PO SCH (08:52)
[2016-08-30] MEDS: LISINOPRIL 2.5 MG TAB PO SCH (08:53)
[2016-08-30] MEDS: POLYETHYLENE GLYCOL 3350 17 GM PKT PO SCH ×2 (08:53→16:51)
[2016-08-30] MEDS: PANTOPRAZOLE SODIUM 40 MG TAB PO SCH (08:53)
[2016-08-30] MEDS: SENNOSIDES/DOCUSATE SODIUM TAB PO SCH (08:53)
[2016-08-30] MEDS ORDERED: INSULIN GLARGINE 100 UNITS/ML SYRINGE SC SCH (09:00)
[2016-08-30 14:40] VITALS: O2SAT 93
--- NOTE | 2016-08-30 14:47 | HOSPPROG ---
Hospitalist Progress Note Assessment/Plan: Patient is a 71-year-old male who is status post a cervical spine surgery. He has a past medical history of atrial fibrillation, diabetes type 2, kidney disease, hypertension. Today is my 1st encounter with the patient. Chart reviewed. # s/p C3-7 ACDF, C3-T1 posterior fusion: POD #4. PT/OT #Acute encephalopathy: improved now off MS Contin. * Recommending no long-acting pain medications/patient improved being off MS Contin * on short acting #Uncontrolled DM: sliding scale and long acting #HTN on lisinopril and labetalol #anemia should get f/u labs #AFIB hx should get Eliquis resumed when ok w Neurosurgery #CKD: BL 1.2-1.5. #Deconditioning: home care #Diet: diabetic #DVT ppx: SCDs #Plan: spoke with Raul about closer monitoring of his glucoses/ low carb diet/ he feels he will do better at home. Recommending very little use of narcotics/ they cause him to be confused. Subjective: Raul has no c/o pain/ feels he will sleep better in his own bed/ wants to watch his own t.v./ his is very supportive of him. Objective: Vital Signs Temp Pulse Resp BP Pulse Ox 36.6 C 87 20 119/75 93 08/30/16 11:46 08/30/16 14:00 08/30/16 11:46 08/30/16 11:46 08/30/16 14:00 Laboratory Results 08/28/16 12:40 08/29/16 04:15 08/29/16 08/30/16 08/31/16 05:59 05:59 05:59 Intake Total 1250 2050 350 Output Total 650 890 Balance 600 1160 350 - Physical Exam Constitutional: no apparent distress, uncomfortable Eyes: PERRL Ears, Nose, Mouth, Throat: other (soft collar in place/ patient is swallowing without difficulty) Cardiovascular: irregularly irregular Respiratory: no respiratory distress Skin: warm Musculoskeletal: generalized weakness Neurologic: AAOx3 Psychiatric: interacting appropriately, not anxious, not encephalopathic ICD10 Worksheet Patient Problems: Problems Problem Status Onset Afib - Atrial fibrillation Active Drug-induced hypotension Active Hyperglycemia Active Leukocytosis Active Obstructive sleep apnea syndrome Active Shoulder joint pain Active Abnormal exercise myocardial perfusion study Acute Acute renal failure Acute Anticoagulated Acute GI bleed Acute Pre-operative cardiovascular examination, high risk surgery Acute Status post insertion of drug-eluting stent into left anterior descending (LAD) artery Acute Status post placement of stent in right coronary artery Acute Weakness Acute
--- NOTE | 2016-08-30 15:12 | PDIAF ---
- Diagnosis Diagnosis: Cervical stenosis Code Status: Full Code - Medication Management Discharge Medications: Medications to Continue on Transfer Allopurinol [Allopurinol 300 MG (RX)] 300 mg PO DAILY 11/09/12 [Last Taken 08/24] Insulin Glargine [Lantus 100 UNITS/ML (*)] 25 units SC BID 11/09/12 [Last Taken 08/24/16 15:00] Labetalol HCl [Trandate 200 mg (*)] 400 mg PO BID 11/09/12 [Last Taken 08/21/16] [place]-3 Ethyl Est-Lovaza [Lovaza 1 gm (*)] 2 gm PO DAILY@11/09/12 [Last Taken 08/18/16] Insulin Lispro [Humalog] 10 - 12 unit SQ BIDMEAL@09/24/14 [Last Taken 10/31] Apixaban [Eliquis] 5 mg PO BID #60 tab 12/07/14 [Last Taken 08/21/16] Herbals/Supplements -Info Only 1 ea PO DAILY 10/26/15 [Last Taken 08/18/16] Lisinopril [Zestril 2.5 mg (*)] 1.25 mg PO DAILY 10/26/15 [Last Taken 08/21/16] Multivitamins [Multivitamin (*)] 1 tab PO DAILY 10/26/15 [Last Taken 08/18/16] Furosemide [Lasix 20 MG (*)] 10 mg PO DAILY 08/10/16 [Last Taken 08/24/16] Omeprazole [Prilosec 20 mg] 40 mg PO DAILY 08/10/16 [Last Taken 08/24/16] Methocarbamol [Robaxin 750 mg (*)] 750 mg PO QID PRN #60 tab 08/30/16 [Last Taken Unknown] oxyCODONE IR [Oxycodone Ir (*)] 2.5 - 5 mg PO Q6H PRN #90 tab 08/30/16 [Last Taken Unknown] Discharge Medications: Refer to the Discharge Home Medication list for PRN reason. - Orders Services needed: Home Care, Registered Nurse, Physical Therapy, Occupational Therapy Home Care Face to Face: I certify that this patient was under my care and that I had the required [id number] encounter meeting the encounter requirements on the discharge day. My findings support the fact that the patient is homebound as defined in CMS Chapter 7 Medicare Benefits Manual 30.1.1, The condition of the patient is such that there exists a normal inability to leave home and consequently, leaving home would require a considerable and taxing effort. Diet Recommendation: no restrictions on diet Diet Texture: Regular Texture Diet Wound Care Instructions: Ok to shower and get incision wet. Be gentle. No scrubbing. Activity/Weight Bearing Restrictions: No lifting more than 10 pounds. Wear collar. - Follow Up Care Current Providers and Referrals: Rafat Beauchamp MD [Medical Doctor] - (Follow up in 1-2 weeks) Attila Sibley MD [Primary Care Provider] -
[2016-08-30 17:04] VITALS: BP 105/57; PULSE 98; RESP 17; TEMP 97.5
== END 2016-08-30 17:42 | disposition home health service (06) | DRG 453 ==
LOC: F3N 05:32 → F2N 17:07 → F3N 08-26 13:28
PROVIDERS: ADMIT Neurological Surgery; ATTEND Neurological Surgery
DX: M48.02 Spinal stenosis, cervical region (principal); G92 Toxic encephalopathy; T40.605A Adverse effect of unspecified narcotics, initial encounter; E11.65 Type 2 diabetes mellitus with hyperglycemia; I48.91 Unspecified atrial fibrillation; E11.22 Type 2 diabetes mellitus with diabetic chronic kidney disease; N18.9 Chronic kidney disease, unspecified; I12.9 Hypertensive chronic kidney disease with stage 1 through stage 4 chronic kidney disease, or unspecified chronic kidney disease; E66.9 Obesity, unspecified; Z68.28 Body mass index [BMI] 28.0-28.9, adult; I25.10 Atherosclerotic heart disease of native coronary artery without angina pectoris; Z79.01 Long term (current) use of anticoagulants; Z95.5 Presence of coronary angioplasty implant and graft; Z79.4 Long term (current) use of insulin; Z98.1 Arthrodesis status
CPT/HCPCS: 82947-QW; 92526-GN; 92610-GN; 97116-GP; 97161-GP; 97166-GO; 97530-GO; 97530-GP; 97535-GO; C1713; G8978-GP-CJ; G8979-GP-CI; G8980-GP-CI; G8987-GO-CK; G8988-GO-CI; G8996-GN-CI; G8997-GN-CH; J0330; J0360; J0690; J1170; J1650; J1815; J2001; J2250; J2704; J2765; J3490; J7060

== ENCOUNTER → 2016-12-20 | Outpatient (CLI) | payer OTHER, MEDICARE | LOC: BMCIMAGING 08:33 | PROVIDERS: ATTEND Physician Assistant Surgical | DX: Z09 Encounter for follow-up examination after completed treatment for conditions other than malignant neoplasm (principal); Z98.1 Arthrodesis status ==

== ENCOUNTER → 2017-03-15 | Outpatient (CLI) | payer OTHER, MEDICARE | LOC: BRMIMAGING 14:50 | PROVIDERS: ATTEND Neurological Surgery | DX: Z09 Encounter for follow-up examination after completed treatment for conditions other than malignant neoplasm (principal); I65.23 Occlusion and stenosis of bilateral carotid arteries; Z98.1 Arthrodesis status | CPT/HCPCS: 72040-PO ==

== ENCOUNTER 2018-06-29 15:01 | Emergency (ER) | payer OTHER, MEDICARE ==
[2018-06-29 15:18] VITALS: BP 106/79
--- NOTE | 2018-06-29 15:30 | EDPHY ---
H & P Stated Complaint: Abdnml lab values/TAVR Time Seen by Provider: 06/29/18 15:29 - Personal History Current Tetanus/Diphtheria Vaccine: Yes Tetanus Vaccine Date: 2010 - Medical/Surgical History Hx Asthma: No Hx Chronic Respiratory Disease: Yes Hx Diabetes: Yes Hx Cardiac Disease: Yes Hx Renal Disease: Yes Hx Cirrhosis: No Hx Alcoholism: No Hx HIV/AIDS: No Hx Splenectomy or Spleen Trauma: No Other PMH: afib on pradaxa, stenting, dm2, gout, hl, bells palsy '08, htn, hyponatremia, anemia, septic joints, multiple orth surgeries, l2-3 lumbar fusions, lumbar steroid injections, staph infection left hand,m r ight shoulder/ rotator cuff septic joint ', chronic back pain, gilbert, iron def anemia. - Social History Smoking Status: Never smoked Constitutional: Initial Vital Signs Temperature (C) 36.7 C 06/29/18 15:15 Heart Rate 80 06/29/18 15:15 Respiratory Rate 16 06/29/18 15:15 Blood Pressure 106/79 06/29/18 15:15 O2 Sat (%) 95 06/29/18 15:15 Allergies/Adverse Reactions: Penicillins Allergy (Intermediate, Verified 06/29/18 15:18) pass out cephalexin monohydrate [From Keflex] Allergy (Verified 06/29/18 15:18) Other-Enter Comments pioglitazone [From Actos] Allergy (Verified 06/29/18 15:18) Other-Enter Comments Home Medications: Medication Instructions Recorded Allopurinol [Allopurinol 300 MG 300 mg PO DAILY 11/09/12 (RX)] Insulin Glargine [Lantus 100 25 units SC BID 11/09/12 UNITS/ML] Labetalol HCl [Trandate 200 mg (*)] 400 mg PO BID 11/09/12 Lovejoy-3 Ethyl Est-Lovaza [Lovaza 1 2 gm PO DAILY@,11/09/12 gm (*)] Insulin Lispro [Humalog] 10 - 12 unit SQ BIDMEAL@,09/24/14 Apixaban [Eliquis] 5 mg PO BID #60 tab 12/07/14 Herbals/Supplements -Info Only 1 ea PO DAILY 10/26/15 Lisinopril [Zestril 2.5 mg (*)] 1.25 mg PO DAILY 10/26/15 Multivitamins [Multivitamin (*)] 1 tab PO DAILY 10/26/15 Furosemide [Lasix 20 MG (*)] 10 mg PO DAILY 08/10/16 Omeprazole [Prilosec 20 mg] 40 mg PO DAILY 08/10/16 Methocarbamol [Robaxin 750 mg (*)] 750 mg PO QID PRN #60 tab 08/30/16 oxyCODONE IR [Oxycodone Ir (*)] 2.5 - 5 mg PO Q6H PRN #90 tab 08/30/16 Medical Decision Making ED Course/Re-evaluation: CHIEF COMPLAINT: Elevated WBC and hyperglycemia HISTORY OF PRESENT ILLNESS: The patient is a 73 y/o male with an extensive medical history including Atrial fibrillation (on Pradaxa), cardiac stents, diabetes, and orthopedic procedures arriving to the emergency department for an elevated WBC (17.8) and hyperglycemia (559). The patient had a cortisone injection 10 days ago. Since the injection he has been changing his insulin dosing accordingly. Today he had labs done at his PCP (Dr. Attila Sibley) as he is scheduled for a TAVR and a was advised to present to the emergency department for an elevated WBC and hyperglycemia. The patient denies any recent illness or feeling ill. No fever, headache, body aches, lightheadedness, chest pain, heart palpitations, shortness of breath, cough, abdominal pain, urinary or bowel complaints, numbness, paresthesias. REVIEW OF SYSTEMS: A comprehensive 10 system review of systems is otherwise negative aside from elements mentioned in the history of present illness and medical decision making. PHYSICAL EXAM: HR, BP, O2 Sat, RR. Temp noted General Appearance: Alert, well hydrated, appropriate, and non-toxic appearing. Head: Atraumatic without scalp tenderness or obvious injury Eyes: Pupils equal, round, reactive to light and accommodation, EOMI, no trauma , no injection. Ears: Clear bilaterally, no perforation, normal landmarks Nose: Atraumatic, no rhinorrhea, clear. Throat: There is no erythema or exudates, no lesions, normal tonsils, mucus membranes moist. Neck: Supple, 2+ carotid upstroke, nontender, no lymphadenopathy. Respiratory: No retractions, no distress, no wheezes, and no accessory muscle use. Lungs are clear to auscultation bilaterally. Cardiovascular: Regular rate and rhythm, no murmurs, rubs, or gallops. Bilateral carotid, radial, dorsalis pedis, and posterior tibial pulses intact. Good capillary refill all extremities. Gastrointestinal: Abdomen is soft, nontender, non-distended, no masses, no rebound, no guarding, no peritoneal signs. Musculoskeletal: Normal active ROM of all extremities, atraumatic. Neurological: Alert, appropriate, and interactive. The patient has normal DTRs and non-focal cranial nerves, motor, sensory, and cerebellar exam. Skin: No rashes, good turgor, no nodules on palpation. Past medical history: A-fib, diabetes, gout, bells palsy '08, hypertension, hyponatremia, anemia, septic joints, lumbar steroid injections, staph infection left hand, chronic back pain, anemia Past surgical history: Stents, l2-3 lumbar fusions, ortho surgeries Family history: Denies Social history: at bedside, retired, lives in [place] DIAGNOSTICS/PROCEDURES/CRITICAL CARE TIME: Not indicated DIFFERENTIAL DIAGNOSIS: The differential diagnosis for the patient's symptoms included but was not limited to leukocytosis secondary to cortisone injection, pneumonia, urinary tract infection, viral syndrome, meningitis, and sepsis. MEDICAL DECISION MAKING: The patient is a 73 y/o male with an extensive medical history including Atrial fibrillation (on Pradaxa), cardiac stents, diabetes, and orthopedic procedures arriving to the emergency department for an elevated WBC. Patient does not appear sick and denies recent illness. The patient is having a systemic reaction to cortisol which is causing the elevated WBC seen at his PCP. He has had to use the sliding scale for insulin, which has happened in the past with cortisone injections. Labs and imaging are not indicated at this time. Patient is safe to be discharged home. Return precautions provided; patient is comfortable with this plan. 1558: I spoke to Dr. Sibley' nurse and discussed the patient's lab results. She will follow up with this patient in the office. Departure - Departure Disposition: Home, Routine, Self-Care Clinical Impression: Leukocytosis Qualifiers: Leukocytosis type: other Qualified Code(s): D72.828 - Other elevated white blood cell count Condition: Good Instructions: Leukocytosis (ED), Diabetic Hyperglycemia (ED) Additional Instructions: 1. Follow-up with your primary doctor within 72 hours. 2. Return to the Emergency Department for fever, chest pain, shortness of breath , increasing pain or other worsening of condition. 3. You are having a systemic reaction to cortisol which is causing the elevated WBC seen at your PCP. Referrals: Attila Sibley MD [Primary Care Provider] - As per Instructions Report Scribed for: Bartolome Su Report Scribed by: Sabiha Cohn Date of Report: 06/29/18 Time of Report: 15:31
== END 2018-06-29 16:12 | disposition home or self-care (01) ==
DX: D72.828 Other elevated white blood cell count (principal); E11.9 Type 2 diabetes mellitus without complications

== ENCOUNTER → 2018-08-23 | Outpatient (CLI) | payer OTHER, MEDICARE | LOC: BMCIMAGING 12:54 | PROVIDERS: ATTEND Internal Medicine | DX: R05 Cough (principal); I50.9 Heart failure, unspecified ==